=== PATIENT | male | born 1975 | race Caucasian/White ===

== ENCOUNTER → 2016-04-22 | Day surgery (SDC) | payer MEDICARE, OTHER ==
[~2016-04-22] VITALS: Ht 185.4 cm; Wt 161.5 kg
== END ==
LOC: OPS 08:01
PROC: 0HB9XZZ Excision of Perineum Skin, External Approach (ICD-10-PCS; principal; 2016-04-22)
DX: L72.3 Sebaceous cyst (principal); J45.909 Unspecified asthma, uncomplicated; K22.70 Barrett's esophagus without dysplasia; R12 Heartburn; K76.0 Fatty (change of) liver, not elsewhere classified; I10 Essential (primary) hypertension; M48.07 Spinal stenosis, lumbosacral region; M54.5 Low back pain; J44.9 Chronic obstructive pulmonary disease, unspecified; G47.30 Sleep apnea, unspecified; E55.9 Vitamin D deficiency, unspecified; Z82.49 Family history of ischemic heart disease and other diseases of the circulatory system; Z83.3 Family history of diabetes mellitus; Z79.899 Other long term (current) drug therapy; Z88.6 Allergy status to analgesic agent
CPT/HCPCS: 11422; 94664; 99070; J2704; J3010

== ENCOUNTER 2016-07-05 03:43 | Emergency (ER) | payer MEDICARE, OTHER | END 2016-07-05 13:25 | disposition home or self-care (01) | LOC: ER 03:43 | DX: N20.1 Calculus of ureter (principal); R11.2 Nausea with vomiting, unspecified; I10 Essential (primary) hypertension; Z79.899 Other long term (current) drug therapy | CPT/HCPCS: 74150; 96361; 96374; 96375; 96376; 99070; 99284; 99284-25; J1170 ==